=== PATIENT | female | born 1995 | race Hispanic/Latino ===

== ENCOUNTER 2018-05-02 02:48 | Emergency (ER) | payer OTHER ==
[~2018-05-02] VITALS: Ht 167.6 cm; Wt 93.0 kg
[~2018-05-02 02:48] MED LIST: BENADRYL1 CRE EX; BENADRYL25 MG OR; NO HOME MEDS; [UNRECOGNIZED DRUG - OTHER]
[2018-05-02] MEDS ORDERED: PRE-NATAL PO (03:27)
[2018-05-02] MEDS ORDERED: ONDANSETRON4 MG PO (03:27)
[2018-05-02 03:45] LABS: HEMATOCRIT 29.3 % (37.0-47.0); HEMOGLOBIN 10.2 g/dl (12.0-16.0); IMMATURE GRANULOCYTES 0.5 % (0.0-5.0); MEAN CORPUSCULAR HGB 31.4 pG CALC (26.0-32.0); MEAN CORPUSCULAR HGB CONC 34.8 g/L CALC (32.0-36.0); NEUT# 6.86 thou/uL (2.00-7.15); RED BLOOD COUNT 3.25 mill/uL (4.20-5.60); RED CELL DISTRI WIDTH 13.6 % (11.5-15.5)
[2018-05-02 03:55] LABS: AMYLASE 113 u/l (30-110); LIPASE 390 u/l (23-300); MEAN CELL VOLUME 90.2 fL CALC (80.0-100.0)
[2018-05-02 03:58] LABS: URINE BILIRUBIN - DIPSTICK NEGATIVE (NEGATIVE); URINE BLOOD DIPSTICK NEGATIVE (NEGATIVE); URINE COLOR YELLOW; URINE GLUCOSE - DIPSTICK NEGATIVE (NEGATIVE); URINE KETONE NEGATIVE (NEGATIVE); URINE LEUK ESTERASE NEGATIVE (NEGATIVE); URINE NITRITE - DIPSTICK NEGATIVE (Negative); URINE PROTEIN - DIPSTICK NEGATIVE (NEG-TRACE); URINE SPECIFIC GRAVITY 1.015; URINE UROBILINOGEN - DIPSTICK 0.2 E.U./dL (0.2)
[2018-05-02 03:59] LABS: URINE CLARITY TURBID
[2018-05-02 04:29] LABS: URINE BACTERIA MODERATE hpf; URINE RBC 0-2 RBC/hpf (0-5); URINE SQUAMOUS EPITHELIAL CELL FEW EPI/hpf (0-FEW)
[2018-05-02 07:15] LABS: ALKALINE PHOSPHATASE 47 u/l (38-126); ANION GAP 13 (6-22 (CALC)); BILIRUBIN, TOTAL 0.2 mg/dL (0.0-1.4); BUN 9 mg/dL (7-17); BUN/CREATININE RATIO 18 (12-20 (CALC)); CARBON DIOXIDE 21 mmol/l (22-30); CHLORIDE 106 mmol/l (95-108); CREATININE 0.5 mg/dL (0.5-1.0); GFR > 60 ML/MIN (>=60 (CALC)); GFR FOR AFR.AMER. > 60 ML/MIN (>=60 (CALC)); POTASSIUM 3.7 mmol/l (3.5-5.1); SGOT/AST 20 u/l (14-36); SGPT/ALT 23 u/l (9-52); SODIUM 137 mmol/l (137-146); TOTAL PROTEIN 6.2 g/dL (6.3-8.2)
[2018-05-02 07:21] LABS: ALBUMIN 3.2 g/dL (3.2-5.0)
[2018-05-02] MEDS ORDERED: CEPHALEXIN500 M1 PO (08:10)
[2018-05-02 08:27] VITALS: BP 104/56
== END 2018-05-02 08:27 | disposition home or self-care (01) ==
LOC: ED 02:48
PROVIDERS: Emergency Medicine; Family Medicine
DX: O26.892 Other specified pregnancy related conditions, second trimester (principal); R10.12 Left upper quadrant pain; R10.33 Periumbilical pain; O99.612 Diseases of the digestive system complicating pregnancy, second trimester; K80.20 Calculus of gallbladder without cholecystitis without obstruction; Z3A.19 19 weeks gestation of pregnancy

== ENCOUNTER 2018-10-28 17:59 | Emergency (ER) | payer OTHER ==
[~2018-10-28] VITALS: Ht 167.6 cm; Wt 91.0 kg
[~2018-10-28 17:59] MED LIST changes: +CEPHALEXIN500 M1 PO; +ONDANSETRON4 MG PO; +PRE-NATAL PO
[2018-10-28 19:45] LABS: HEMATOCRIT 34.6 % (37.0-47.0); HEMOGLOBIN 11.6 g/dl (12.0-16.0); IMMATURE GRANULOCYTES 0.4 % (0.0-5.0); MEAN CELL VOLUME 87.6 fL CALC (80.0-100.0); MEAN CORPUSCULAR HGB 29.4 pG CALC (26.0-32.0); MEAN CORPUSCULAR HGB CONC 33.5 g/L CALC (32.0-36.0); NEUT# 5.18 thou/uL (2.00-7.15); RED BLOOD COUNT 3.95 mill/uL (4.20-5.60); RED CELL DISTRI WIDTH 13.1 % (11.5-15.5)
[2018-10-28 19:55] LABS: ALBUMIN 3.8 g/dL (3.2-5.0); ANION GAP 12 (6-22 (CALC)); BILIRUBIN, TOTAL 0.2 mg/dL (0.0-1.4); BUN 14 mg/dL (7-17); BUN/CREATININE RATIO 25 (12-20 (CALC)); CARBON DIOXIDE 25 mmol/l (22-30); CHLORIDE 103 mmol/l (95-108); CREATININE 0.5 mg/dL (0.5-1.0); GFR > 60 ML/MIN (>=60 (CALC)); GFR FOR AFR.AMER. > 60 ML/MIN (>=60 (CALC)); SGOT/AST 23 u/l (14-36); SODIUM 137 mmol/l (137-146); TOTAL PROTEIN 6.4 g/dL (6.3-8.2)
[2018-10-28 19:57] LABS: ALKALINE PHOSPHATASE 71 u/l (38-126)
[2018-10-28 20:21] VITALS: BP 122/72
== END 2018-10-28 20:21 | disposition home or self-care (01) ==
LOC: ED 17:59
PROVIDERS: Emergency Medicine
DX: N92.0 Excessive and frequent menstruation with regular cycle (principal); R53.1 Weakness

== ENCOUNTER 2018-12-24 11:37 | Emergency (ER) | payer OTHER ==
[~2018-12-24] VITALS: Ht 167.6 cm; Wt 101.0 kg
[2018-12-24] MEDS ORDERED: MEDDOSEPAK PO (12:51)
[2018-12-24 13:00] VITALS: BP 121/78
== END 2018-12-24 13:00 | disposition home or self-care (01) ==
LOC: ED 11:37
DX: L50.0 Allergic urticaria (principal)

== ENCOUNTER 2018-12-26 01:04 | Emergency (ER) | payer OTHER ==
[~2018-12-26] VITALS: Ht 167.6 cm; Wt 100.0 kg
[~2018-12-26 01:04] MED LIST changes: +MEDDOSEPAK PO
[2018-12-26] MEDS ORDERED: BENADRYL 50MG C50 MG PO (02:18)
[2018-12-26 02:45] VITALS: BP 111/56
== END 2018-12-26 02:45 | disposition home or self-care (01) ==
LOC: ED 01:04
DX: L50.9 Urticaria, unspecified (principal)

== ENCOUNTER 2019-02-06 18:53 | Emergency (ER) | payer OTHER ==
[~2019-02-06] VITALS: Ht 167.6 cm; Wt 104.5 kg
[~2019-02-06 18:53] MED LIST changes: +BENADRYL 50MG C50 MG PO
[2019-02-06] MEDS ORDERED: PERCOCET 5/325M1 TAB PO (19:37)
[2019-02-06] MEDS ORDERED: AMOXICILLIN500 MG PO (19:37)
[2019-02-06 19:54] VITALS: BP 129/74
== END 2019-02-06 19:50 | disposition home or self-care (01) ==
LOC: ED 18:53
DX: K08.89 Other specified disorders of teeth and supporting structures (principal)

== ENCOUNTER 2019-08-08 16:44 | Emergency (ER) | payer OTHER ==
[~2019-08-08] VITALS: Ht 167.6 cm; Wt 109.1 kg
[~2019-08-08 16:44] MED LIST changes: +AMOXICILLIN500 MG PO; +PERCOCET 5/325M1 TAB PO
[2019-08-08] MEDS ORDERED: TAM75CAP PO (20:34)
[2019-08-08 20:40] VITALS: BP 116/71
== END 2019-08-08 20:40 | disposition home or self-care (01) ==
LOC: ED 16:44
DX: J11.1 Influenza due to unidentified influenza virus with other respiratory manifestations (principal)

== ENCOUNTER 2020-06-12 00:01 | Inpatient (IN) | payer OTHER ==
[2020-06-12] VITALS (8 sets, daily range): BP systolic 103–129; BP diastolic 55–78
[~2020-06-12] VITALS: Ht 167.6 cm; Wt 99.0 kg
[~2020-06-12 00:01] MED LIST changes: +TAM75CAP PO
--- NOTE | 2020-06-12 00:05 | NUR ---
PATIENT TO ROOM 6 FOR BEDSIDE TRIAGE.
[2020-06-12] MEDS ORDERED: [UNRECOGNIZED DRUG - REMARK] (00:19)
--- NOTE | 2020-06-12 00:35 | NUR ---
PATIENT MEDICATED ORDERED. WILL MONITOR FOR EFFECT.
--- NOTE | 2020-06-12 01:05 | NUR ---
PATIENT STATES PAIN IS GREATLY IMPROVED AND ALMOST GONE. AWARE OF PENDING RESULTS AND PLAN OF CARE.
[2020-06-12 01:22] LABS: URINE BILIRUBIN - DIPSTICK NEGATIVE (NEGATIVE); URINE BLOOD DIPSTICK NEGATIVE (NEGATIVE); URINE COLOR YELLOW; URINE GLUCOSE - DIPSTICK NEGATIVE (NEGATIVE); URINE KETONE NEGATIVE (NEGATIVE); URINE LEUK ESTERASE NEGATIVE (NEGATIVE); URINE NITRITE - DIPSTICK NEGATIVE (Negative); URINE PROTEIN - DIPSTICK NEGATIVE (NEG-TRACE); URINE UROBILINOGEN - DIPSTICK 0.2 E.U./dL (0.2)
[2020-06-12 01:29] LABS: HEMATOCRIT 33.5 % (37.0-47.0); HEMOGLOBIN 10.7 g/dl (12.0-16.0); RED BLOOD COUNT 4.1 mill/uL (4.20-5.60)
[2020-06-12 01:30] LABS: MEAN CELL VOLUME 81.7 fL CALC (80.0-100.0); MEAN CORPUSCULAR HGB 26.1 pG CALC (26.0-32.0); MEAN CORPUSCULAR HGB CONC 31.9 g/dL CAL (32.0-36.0); RED CELL DISTRI WIDTH 14.1 % (11.5-15.5)
[2020-06-12 01:31] LABS: NEUT# 9.9 thou/uL (2.00-7.15)
[2020-06-12 01:32] LABS: ALKALINE PHOSPHATASE 99 u/l (38-126); AMYLASE 175 u/l (30-110); ANION GAP 10 (6-22 (CALC)); BUN 5 mg/dL (7-17); BUN/CREATININE RATIO 9 (12-20 (CALC)); CARBON DIOXIDE 28 mmol/l (22-30); CHLORIDE 103 mmol/l (95-108); CREATININE 0.6 mg/dL (0.5-1.0); GFR > 60 ML/MIN (>=60 (CALC)); GFR FOR AFR.AMER. > 60 ML/MIN (>=60 (CALC)); LIPASE 934 u/l (23-300); POTASSIUM 3.6 mmol/l (3.5-5.1); SGOT/AST 16 u/l (14-36); SODIUM 136 mmol/l (137-146); TOTAL PROTEIN 7.2 g/dL (6.3-8.2)
[2020-06-12 01:34] LABS: BILIRUBIN, TOTAL 0.3 mg/dL (0.0-1.4)
--- NOTE | 2020-06-12 01:45 | NUR ---
ALL DIAGNOSTICS COMPLETED. MD AT BEDSIDE TO DISCUSS RESULTS AND PLANS TO ADD ON A CAT SCAN. PATIENT VERBALIZES UNDERSTANDING. PAIN REMAINS IMPROVED.
--- NOTE | 2020-06-12 03:12 | NUR ---
PATIENT RETURNS TO DEPARTMENT VIA WHEELCHAIR. AWAITING ALL RESULTS AND PLAN OF CARE.
--- NOTE | 2020-06-12 03:50 | NUR ---
MD AT BEDSIDE TO DISCUSS RESULTS, PLANS FOR ULTRASOUND ORDER, AND POSSIBLE ADMISSION. PATIENT VERBALIZED UNDERSTANDING. STATES PAIN HAS RETURNED. RATES AN 8 ON 1-10 PAIN SCALE.
--- NOTE | 2020-06-12 04:10 | NUR ---
PATIENT MEDICATED FOR PAIN ORDERED. WILL MONITOR FOR EFFECT. PATIENT AWARE OF PENCING ULTRASOUND.
--- NOTE | 2020-06-12 05:05 | NUR ---
PATIENT RESTING COMFORTABLE WITH EYES CLOSED. AWAKENS TO NAME. STATES PAIN IS IMPROVED.
--- NOTE | 2020-06-12 05:35 | NUR ---
PATIENT REAMINS COMFORTABLE. AWARE OF PLANS TO ADMIT TO HOSPITAL.
--- NOTE | 2020-06-12 06:42 | NUR ---
REPORT CALLED TO SANFORD SIMMS. STATES ANA WILL BE TAKING PATIENT AFTER SHIFT CHANGE.
--- NOTE | 2020-06-12 07:15 | NUR ---
PT EDUCATED REGARDING ADMISSION AND NNED FOR COVID SWAB AND THAT IF SHE GOES TO SX IT MAY REQUIRE A RAPID COVID SWAB, PT VERBALIZES UNDERSTANDING.
--- NOTE | 2020-06-12 07:55 | NUR ---
PT SWABBED AND TOLERATED W/O INCIDENT, CALL HORN WITHIN REACH
--- NOTE | 2020-06-12 08:20 | NUR ---
PT TRASNFERRED TO MED SURG VI WHEELCHAIR BY CHARGE NURSE GEOVANNY. ALL BELONGINGS SENT WITH PT.
--- NOTE | 2020-06-12 08:21 | NUR ---
PT ARRIVED TO THE FLOOR ACCOMPANIED BY STAFF. VS OBTAINED. PT ORIENTED TO ROOM AND CALL HORN SYSTEM. SAFETY PRECAUTIONS IN PLACE. WILL CONTINUE TO MONTIOR.
--- NOTE | 2020-06-12 11:20 | NUR ---
PT RESTING IN BED, ALERT AND ORIENTED. RESPIRATIONS ARE EVEN AND UNLABORED ON RA. LUNGS SOUND CLEAR. PEDAL PULSES ARE STRONG. PT REPORTS SHARP ABDOMINAL PAIN RATING IT A 7/10. PT TO BE MEDICATED PER EMAR ORDERS. PT EDUCATED ON PLAN OF CARE, PT CONTINUES TO BE NPO AT THIS TIME. SAFETY PRECAUTIONS IN PLACE. WILL CONTINUE TO MONITOR.
--- NOTE | 2020-06-12 12:38 | NUR ---
PT LEAVING THE FLOOR TO GO TO OR ACCOMPANIED BY OR STAFF.
--- NOTE | 2020-06-12 15:15 | NUR ---
PT RETURNED TO THE FLOOR FROM OR VIA STRETCHER, ACCOMPANIED BY OR STAFF. PT ASSISTED INTO BED, PT IS DROWSY. VS OBTAINED. SAFETY PRECAUTIONS IN PLACE. WILL CONTINUE TO MONTIOR.
--- NOTE | 2020-06-12 20:00 | NUR ---
PATIENT IS ALERT AND ORIENTED X 3. ABLE TO MAKE NEEDS KNOWN. RESPIRATIONS EASY. O2 2L V IA NASAL CANNULA IN PLACE. 4 INCISIONS TO ABDOMEN DERMABONDED. IFV INFUSING ORDERED. COMPLAINS OF PAIN 6 TO ABDOMEN. BED IN LOW POSITION. CALL LIGHT WITHIN REACH.
--- NOTE | 2020-06-13 | NUR ---
PATIENT RESTING WITH EYES CLOSED. ZOSYN INFUSING ORDERED. IV FLUIDS INFUSING. ALERT AND ORIENTED X 3. ABLE TO MAKE NEEDS KNOWN. RESPIRATIONS EASY. BED IN LOW POSITION. CALL LIGHT WITHIN REACH.
[2020-06-13 04:00] VITALS: BP 109/54
--- NOTE | 2020-06-13 04:00 | NUR ---
PATIENT RESTING WITH EYES CLOSED. MEDICATED WITH DILAUDID FOR PAIN WITH POSITIVE EFFECT. BED IN LOW POSITION. CALL LIGHT WITHIN REACH.
[2020-06-13 08:11] VITALS: BP 115/77
--- NOTE | 2020-06-13 08:11 | NUR ---
RECIEVED REPORT FROM STEPHANIE OSPINA. PT RESTING IN SEMI FOWLERS POSITION UPON ENTERING ROOM. INTRODUCED SELF TO PT AND DISCUSSED POC. PT IS A/O X3. ASSESSMENT AND VITALS OBATINED AT THIS TIME. BP 115/77, HR 64, O2 99% ON ROOM AIR. RESPIRATIONS ARE EVEN AND UNLABORED WITH NO SIGNS OF DISTRESS NOTED. LUNG SOUNDS AR CLEAR. HEART RHYTHM IS NORMAL . BOWEL SOUNDS ARE ACTIVE IN ALL QUADRANTS, LAST REPORTED BM 06/10/2020.RADIAL AND PEDAL PULSES ARE STRONG WITH NORMAL CAPILLARY REFILL. #20G IN LH RUNNING WITH IVF PER ORDER, SITE APPEARS HEALTHY AND PATENT. PT REFUSED ANYTHING TO ASSIST WITH BM. PT HAD OPEN WENDY ON 06/12/[address] CHAPA. 4 LAPROSCOPIC SITE OPEN TO AIR. PT COMPLAINS OF 6/10 PAIN, REFUSES PAIN MEDICATION. SCDS AT BEDSIDE. PT REQUEST TO LEAVE THEM OFF. PT DENIES ANY OTHER PAINS OR DISOMFORTS AT THIS TIME. ALL SAFETY PRECAUTIONS ARE IN PLACE WIHT CALL LIGHT IN REACH. WILL CONTINUE TO MONITOR
--- NOTE | 2020-06-13 10:58 | NUR ---
PT COMPLAINS OF 7/10 ABD PAIN AT THIS TIME. PT MEDICATED PER EMAR. RESPIRATIONS ARE EVEN AND UNLABORED WITH NO SIGNS OF DISTRESS NOTED. ALL SAFETY PRECAUTIONS ARE IN PLACE WITH CALL LIGHT IN REACH. WILL CONTINUE TO MONITOR
--- NOTE | 2020-06-13 12:30 | NUR ---
PT RESTING IN SEMI FOLWERS POSITION UPON ENTERING ROOM. RESPIRATIONS ARE EVEN AND UNLABORED WITH NO SIGNS OF DISTRESS NOTED. REASSESSMENT OF PAIN RESULTING IN 4/10. PT STATES DILAUDID IS WORKING AND REFUSES SCHEDULKED TORADOL. ALL SAFETY PRECAUTIONS ARE IN PLACE WIHT CALL LIGHT IN REACH. WILL CONTINUE TO MONITOR
--- NOTE | 2020-06-13 14:10 | NUR ---
DR CHAPA AT BEDSIDE DISCUSSING POC WITH PT
[2020-06-13 15:05] VITALS: BP 111/68
--- NOTE | 2020-06-13 16:02 | NUR ---
PT RESTING IN SEMI FOWLERS POSITION UPON ENTERING ROOM. RESPIRATIONS ARE EVEN AND UNLABORED. PT IS A/OX3. PT DENIES ANY PAIN OR DISCOMFORTS AT THIS TIME. ALL SAFETY PRECAUTIONS ARE IN PLACE WITH CALL LIGHT IN REACH. WILL CONTINUE TO MONITOR
[2020-06-13 19:09] VITALS: BP 121/74
--- NOTE | 2020-06-13 19:40 | NUR ---
PT RESTING IN BED, NO SIGNS OF DISTRESS NOTED, RESP EVEN AND UNLABORED. PT ALERT AND ORIENTED X3, DISCUSSED POC, PT DENIES ANY NEEDS AT THIS TIME. INCISIONS X4 TO ABD CDI, PAINT LINE OPERATOR WITH DERMABOND, NOTED REDNESS TO UMBILICUS. SCD'S REFUSED, PT STATES SHES BEEN AMBULATING. ASSESSMENT COMPLETED, CALL LIGHT IN REACH,CONTINUE TO MONITOR.
--- NOTE | 2020-06-13 20:50 | NUR ---
PT RESTING IN BED, C/O ABD PAIN AND HEADACHE, PT MEDICATED WITH PERCOCET. CALL LIGHT IN REACH,CONTINUE TO MONITOR.
--- NOTE | 2020-06-13 23:56 | NUR ---
PT RESTING IN BED, NOTED IV DISLODGED, CATHETER INTACT. NEW IV OBTAINED TO RFA. CALL LIGHT IN REACH,CONTINUE TO MONITOR.
[2020-06-14 04:14] VITALS: BP 112/68
--- NOTE | 2020-06-14 04:18 | NUR ---
PT RESTING IN BED, C/O ABD PAIN, PT MEDICATED PER OCT. CALL LIGHT IN REACH,CONTINUE TO MONITOR.
--- NOTE | 2020-06-14 06:10 | NUR ---
CALL MADE TO OF [facility] [id number], ORDERS FOR MRCP TODAY, CONTINUE TO MONITOR.
[2020-06-14 07:20] VITALS: BP 104/65
--- NOTE | 2020-06-14 07:20 | NUR ---
RECIEVED REPORT FROM Pk MCCLENDON LPN. PT SLEEPING IN SEMI FOWLERS POSITION UPON ENTERING ROOM. PT IS EASY TO AWAKEN. INTRODUCED SELF TO PT AND DISCUSSED POC. PT IS A/O X3. ASSESSMENT AND VITALS OBTAINED BP 104/65, HR 69, O2 97% ON ROOM AIR. RESPIRATIONS ARE EVEN AND UNLABROED WITH NO SIGNS OF DISTRESS NOTED. HEART RHYTHM IS NORMAL. BOWEL SOUNDS ARE ACTIVE IN ALL QUADRANTS, LAST REPORTED BM 06/10/2020. PT REQUEST STOOL SOFTNER. WRITTER INFORMED PT THAT MD WOULD HAVE TO NOTIFIED. PT VERBAILZED UNDERSTANDING. PT HAS 4 SURGICAL SITE FROM LAPROSCOPIC WENDY BY DR CHAPA ON 06/12/2020. SURGICAL SITE TO NAVEL PRESENTS WITH REDNESS/BRUISING. PT DENEIS ANY PAIN OR DISCOMFORTS AT THIS TIME. ALL SAFTEY PRECAUTIONS ARE IN PLACE WITH CALL LIGHT IN REACH. WILL CONTINUE TO MONITOR
--- NOTE | 2020-06-14 10:56 | NUR ---
PT TRANSPORTED TO MRI VIA WHEELCHAIR ACCOMPAINED BY CAROLIN JACK IN STABEL CONDITION
--- NOTE | 2020-06-14 11:15 | NUR ---
PT BACK TO MED SURG ROOM 277 IN STABLE CONDITION ACCOMPAINED BY CAROLIN HERNADEZ. PT RESTING IN BED. REPSIRATIONS ARE EVEN AND UNLABORED WITH NO SIGNS OF DISTRESS NOTED. ALL SAFTEY PRECAUTIONS ARE IN PLACE WITH CALL LIGHT IN REACH.
--- NOTE | 2020-06-14 12:15 | NUR ---
PT RESTING IN SEMI FOWLERS POSITION. RESPIRATIONS ARE EVEN AND UNLABORED WITH NO SIGNS OF DISTRESS NOTED. PT DENIES ANY NEEDS OR DISCOMFORTS AT THSI TIME. ALL SAFETY PRECAUTIONS REMAIN SIN PLACE WITH CALL LIGHT IN REACH. WILL CONTINUE TO MONITOR
--- NOTE | 2020-06-14 13:53 | NUR ---
DR GREENE AT BEDSIDE DISCUSSING POC
--- NOTE | 2020-06-14 16:05 | NUR ---
PT RESTING IN SEMI FOWLERS POSITION UPON ENTERING ROOM. PT IS A/ X3. RESPIRATIONS ARE EVEN AND UNLABORED WITH NO SIGNS OF DISTRESS NOTED. PT DENIES OF ANY PAIN AT THIS TIME. ALL SAFETY PRECAUTIONS ARE IN PLACE WITH CALL LIGHT IN REACH. WILL CONTINUE TO MONITOR
[2020-06-14 16:52] VITALS: BP 126/76
[2020-06-14 19:41] VITALS: BP 133/84
--- NOTE | 2020-06-14 20:34 | NUR ---
PATIENT IS ALERT AND ORIENTED X3. ABLE TO MAKE NEEDS KNOWN. RESPIRATIONS EASY ON ROOM AIR. COMPLAINS OF ABDOMINAL PAIN POST LAP WENDY PAIN 03/02. MEDICATED WITH 1 MG DILAUDED WITH POSITIVE EFFECT 12/01. ABDOMINAL INCISION OPEN TO AIR WITH DERMABOND. SCDS IN PLACE AND WORKING. VAD #22 RFA S/L WITH DRESSING CLEAND DRY AND INTACT. BRUISING NOTED TO NAVAL. REPORTS HAVE LOOSE BM TODAY. BED IN LOW POSITION. CALL LIGHT WITHIN REACH
--- NOTE | 2020-06-15 | NUR ---
PATIENT IN BED RESTING WITH EYES CLOSED. MEDICATED FOR ABDOMINAL PAIN WITH PERCOCET AND DILAUDED WITH POSITIVE EFFECT. BED IN LOW POSITION. CALL LIGHT WITHIN REACH.
[2020-06-15 04:36] VITALS: BP 115/72
--- NOTE | 2020-06-15 05:57 | NUR ---
PATIENT RESTING WITH EYES CLOSED. RESPIRATIONS EASY ON ROOM AIR. COMPLAINTS OF PAIN ADDRESSED WITH PRN PAIN MEDICATIONS WITH POSITIVE EFFECT. BED IN LOW POSITION. CALL LIGHT WITHIN REACH.
[2020-06-15 06:06] LABS: BILIRUBIN, TOTAL 0.3 mg/dL (0.0-1.4); TOTAL PROTEIN 5.9 g/dL (6.3-8.2)
[2020-06-15 06:25] LABS: ALBUMIN 3.1 g/dL (3.2-5.0)
[2020-06-15 08:30] VITALS: BP 101/62
--- NOTE | 2020-06-15 08:39 | NUR ---
ASSESSMENT DONE. PT IS A&O X3. PT STATED PAIN IN ABD 01/31. MEDICATED PT WITH OXYCODONE. X4 ABD INCISION CDI. RESPS EVEN AND UNLABORED. PT STATED SHE HAD A BM YESTERDAY. PT DENIES ANY OTHER NEEDS AT THIS TIME. CALL LIGHT IN REACH.
--- NOTE | 2020-06-15 12:30 | NUR ---
TOLD PT I WILL BE WORKING ON HER DC PAPERS. PT DENIES ANY NEEDS AT THIS TIME. CALL LIGHT IN REACH.
--- NOTE | 2020-06-15 13:11 | NUR ---
Discharge instructions given. Patient verbalizes understanding of same. Discharged in stable condition via Wheelchair to Home with staff. All belongings sent with pt.
== END 2020-06-15 13:11 | disposition home or self-care (01) | DRG 417 ==
LOC: ED 00:01 → MS2 05:31 → ED 05:49 → ED-I 05:49 → MS2 13:03
PROVIDERS: ADMIT Surgery; ATTEND Surgery
PROC: 0FT44ZZ Resection of Gallbladder, Percutaneous Endoscopic Approach (ICD-10-PCS; principal; 2020-06-12)
PROC: BF001ZZ Plain Radiography of Bile Ducts using Low Osmolar Contrast (ICD-10-PCS; 2020-06-12)
PROC: 3E02340 Introduction of Influenza Vaccine into Muscle, Percutaneous Approach (ICD-10-PCS; 2020-06-13)
DX: K80.00 Calculus of gallbladder with acute cholecystitis without obstruction (principal); K85.90 Acute pancreatitis without necrosis or infection, unspecified; Z23 Encounter for immunization; Z20.828 Contact with and (suspected) exposure to other viral communicable diseases
CPT/HCPCS: J0131; J1100; J1610; J1650; Q9967; S0164

== ENCOUNTER 2020-12-01 16:32 | Emergency (ER) | payer OTHER ==
[~2020-12-01 16:32] MED LIST changes: +[UNRECOGNIZED DRUG - REMARK]
[2020-12-01 17:58] LABS: HEMATOCRIT 33.7 % (37.0-47.0); HEMOGLOBIN 10.8 g/dl (12.0-16.0); IMMATURE GRANULOCYTES 0.2 % (0.0-5.0); MEAN CELL VOLUME 83.6 fL CALC (80.0-100.0); MEAN CORPUSCULAR HGB 26.8 pG CALC (26.0-32.0); NEUT# 3.11 thou/uL (2.00-7.15); RED BLOOD COUNT 4.03 mill/uL (4.20-5.60); RED CELL DISTRI WIDTH 14.4 % (11.5-15.5)
[2020-12-01 17:59] LABS: URINE BILIRUBIN - DIPSTICK NEGATIVE (NEGATIVE); URINE BLOOD DIPSTICK SMALL (NEGATIVE); URINE COLOR YELLOW; URINE GLUCOSE - DIPSTICK NEGATIVE (NEGATIVE); URINE KETONE NEGATIVE (NEGATIVE); URINE LEUK ESTERASE TRACE (NEGATIVE); URINE PH 6.5 (4.5-8.0); URINE PROTEIN - DIPSTICK NEGATIVE (NEG-TRACE); URINE SPECIFIC GRAVITY 1.025; URINE UROBILINOGEN - DIPSTICK 0.2 E.U./dL (0.2)
[2020-12-01 18:01] LABS: URINE NITRITE - DIPSTICK NEGATIVE (Negative)
[2020-12-01 18:07] LABS: URINE SQUAMOUS EPITHELIAL CELL FEW EPI/hpf (0-FEW)
[2020-12-01 18:11] LABS: ALBUMIN 3.7 g/dL (3.2-5.0); ALKALINE PHOSPHATASE 83 u/l (38-126); ANION GAP 9 (6-22 (CALC)); BUN 9 mg/dL (7-17); BUN/CREATININE RATIO 18 (12-20 (CALC)); CARBON DIOXIDE 29 mmol/l (22-30); CHLORIDE 101 mmol/l (95-108); CREATININE 0.5 mg/dL (0.5-1.0); GFR > 60 ML/MIN (>=60 (CALC)); GFR FOR AFR.AMER. > 60 ML/MIN (>=60 (CALC)); POTASSIUM 3.6 mmol/l (3.5-5.1); SGOT/AST 23 u/l (14-36); SODIUM 135 mmol/l (137-146); TOTAL PROTEIN 6.8 g/dL (6.3-8.2)
[2020-12-01 18:13] LABS: BILIRUBIN, TOTAL 0.5 mg/dL (0.0-1.4)
[2020-12-01] MEDS ORDERED: NORGESTIMATE/ETHINYL PO (18:27)
[2020-12-01 19:15] VITALS: BP 123/71
== END 2020-12-01 19:15 | disposition home or self-care (01) ==
LOC: ED 16:32
PROVIDERS: Family Medicine
DX: J11.1 Influenza due to unidentified influenza virus with other respiratory manifestations (principal); Z20.822 Contact with and (suspected) exposure to COVID-19

== ENCOUNTER 2021-08-05 13:46 | Emergency (ER) | payer OTHER ==
[~2021-08-05] VITALS: Ht 167.6 cm; Wt 70.0 kg
[~2021-08-05 13:46] MED LIST changes: +NORGESTIMATE/ETHINYL PO
[2021-08-05] MEDS ORDERED: AMOXICILLIN500 M2 PO (15:40)
[2021-08-05 15:53] VITALS: BP 143/66
== END 2021-08-05 16:03 | disposition home or self-care (01) ==
LOC: ED 13:46
DX: J02.9 Acute pharyngitis, unspecified (principal); Z20.822 Contact with and (suspected) exposure to COVID-19